=== PATIENT | male | born 1975 | race African-American/Black ===

== ENCOUNTER 2017-01-25 02:11 | Emergency (ER) | payer SELFPAY ==
[~2017-01-25] VITALS: Ht 185.4 cm; Wt 80.0 kg
[~2017-01-25 02:11] MED LIST: ECOT81TA2 PO; IBUP800T23 PO
[2017-01-25 02:16] VITALS: BP 124/94; PULSE 88; RESP 18; TEMP 98; O2SAT 99
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
[2017-01-25] MEDS ORDERED: MORPHINE SULFATE 4 MG/ML INJ IV PUSH ONE (03:15)
[2017-01-25] MEDS ORDERED: SODIUM CHLOR 0.9% 250 ML INJ 250 ML IV ONE (03:15)
[2017-01-25 03:29] VITALS: BP 146/98; PULSE 88; RESP 20; O2SAT 99
[2017-01-25] MEDS ORDERED: PROPOFOL 200 MG/20 ML AMP IV ONE (03:45)
[2017-01-25 03:58] VITALS: BP 146/98; PULSE 92; RESP 16; O2SAT 94
--- NOTE | 2017-01-25 04:46 | RADRPT ---
EXAM DATE/TIME: 01/25/2017 02:46 [facility] COMPARISON: No previous studies available for comparison. INDICATIONS : Left shoulder pain; fall today. MEDICAL HISTORY : None. SURGICAL HISTORY : None. ENCOUNTER: Initial ACUITY: 1 day PAIN SCORE: 10/10 LOCATION: Left shoulder FINDINGS: There is into dislocation of the humeral head without evidence of fracture. The acromioclavicular lalito nt is intact. Bony mineralization is normal. CONCLUSION: 1. Anterior shoulder dislocation Charanjit Blevins MD on January 25, 2017 at 4:44 Board Certified Radiologist. This report was verified electronically.
[2017-01-25 05:30] VITALS: O2SAT 100
[2017-01-25] MEDS ORDERED: IBUP800T23 PO (05:32)
[2017-01-25] MEDS ORDERED: ULTR50TA5 PO (05:32)
--- NOTE | 2017-01-25 06:20 | RADRPT ---
EXAM DATE/TIME: 01/25/2017 05:30 [facility] COMPARISON: SHOULDER LEFT LTD (2VWS), January 25, 2017, 2:46. INDICATIONS : Post reduction left shoulder. MEDICAL HISTORY : None. SURGICAL HISTORY : None. ENCOUNTER: Subsequent ACUITY: 1 day PAIN SCORE: 4/10 LOCATION: Left shoulder FINDINGS: There is uncomplicated reduction of the shoulder without evidence of fracture. The glenohumeral joint is intact. The acromioclavicular joint is intact. CONCLUSION: 1. Uncomplicated reduction Charanjit Blevins MD on January 25, 2017 at 6:19 Board Certified Radiologist. This report was verified electronically.
[2017-01-25 07:15] VITALS: BP 119/78; PULSE 84; RESP 15; O2SAT 98
== END 2017-01-25 09:26 | disposition home or self-care (01) ==
LOC: NEPC 02:11
DX: S43.005A Unspecified dislocation of left shoulder joint, initial encounter (principal); F12.10 Cannabis abuse, uncomplicated; F14.10 Cocaine abuse, uncomplicated; Y04.0XXA Assault by unarmed brawl or fight, initial encounter; Y93.9 Activity, unspecified; Y92.9 Unspecified place or not applicable; Y99.9 Unspecified external cause status
CPT/HCPCS: 23650; 73030; 96361; 96374; 99152; 99283; J2270; J7050

== ENCOUNTER 2017-03-23 19:09 | Emergency (ER) | payer SELFPAY ==
[~2017-03-23] VITALS: Ht 182.9 cm; Wt 70.0 kg
[~2017-03-23 19:09] MED LIST changes: +ULTR50TA5 PO
[2017-03-23 19:10] VITALS: BP 138/82; PULSE 90; RESP 16; TEMP 98.4; O2SAT 98
--- NOTE | 2017-03-23 20:07 | PD ---
Physical Exam Date Seen by Provider: Mar 23, 2017 Time Seen by Provider: 20:05 Narrative 41 yo male here for evaluation of Bite to the left knee. Happened three days ago. Painful 05/21. Has limp because of it. Unknown insect. No drainage. No allergies. has not taken anything for this. Vitals sign stable. Patient awaiting bed placement. Data Data Last Documented VS Vital Signs Date Time Temp Pulse Resp B/P Pulse Ox O2 Delivery O2 Flow Rate FiO2 03/23/17 19:10 98.4 90 16 138/82 98 Room Air [facility] Medical Record Reviewed: Yes Supervised Visit with JUAN DIEGO: No Manpreet Barrow Mar 23, 2017 20:07
[2017-03-23] MEDS ORDERED: CEPHALEXIN MONOHYDRATE 500 MG CAP PO ONE (22:45)
[2017-03-23] MEDS ORDERED: CEPH-460 PO (22:51)
[2017-03-23] MEDS ORDERED: IBUP800T23 PO (22:51)
--- NOTE | 2017-03-23 22:52 | PD ---
HPI Chief Complaint: Bite or Sting Time Seen by Provider: 22:30 Travel History International Travel<30 days: No Contact w/Intl Traveler<30days: No Traveled to known affect area: No History of Present Illness HPI Patient is a 41-year-old male presenting with possible insect bite to his left knee. Patient states it's been ongoing for 3 days, the pain is causing him to limp. He believes he could've been bit by a spider is uncertain. He denies any fever, chills, nausea, vomiting, headache, shortness of breath. He denies any swelling in his lower extremity. Patient reports his pain is a 7 out of 10 and states it's aching and sore. 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) Diabetes: No Diminished Hearing: No Endocrine: No Genitourinary: No Immune Disorder: No Musculoskeletal: No Neurologic: No Psychiatric: No Respiratory: No Radiation Therapy: No Sleep Apnea: No Thyroid Disease: No Past Surgical History Surgical History: No Previous Surgery Other Surgery: No Social History 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 SKIN: Focused skin assessment warm/dry. 2 cm x 3 cm area of fluctuance to the medial aspect of the left knee. No erythema noted, moderately tender to palpation. HEAD: Normocephalic. EYES: No scleral icterus. No injection or drainage. NECK: Supple, trachea midline. No JVD or lymphadenopathy. CARDIOVASCULAR: Regular rate and rhythm without murmurs, gallops, or rubs. RESPIRATORY: Breath sounds equal bilaterally. No accessory muscle use. GASTROINTESTINAL: Abdomen soft, non-tender, nondistended. MUSCULOSKELETAL: No cyanosis, or edema. BACK: Nontender without obvious deformity. No CVA tenderness. Data Data Last Documented VS Vital Signs Date Time Temp Pulse Resp B/P Pulse Ox O2 Delivery O2 Flow Rate FiO2 03/23/17 19:10 98.4 90 16 138/82 98 Room Air MDM Medical Decision Making Medical Screen Exam Complete: Yes Emergency Medical Condition: Yes Interpretation(s) Vital Signs Date Time Temp Pulse Resp B/P Pulse Ox O2 Delivery O2 Flow Rate FiO2 03/23/17 19:10 98.4 90 16 138/82 98 Room Air Differential Diagnosis Cellulitis versus abscess versus cyst versus other Narrative Course Patient is a 41-year-old male presenting with left knee pain secondary to possible insect bite. Physical examination appears consistent with abscess formation on the medial aspect of left knee. Please see procedure report for I& D. Ultrasound obtained, patient given first dose of Keflex in the emergency department. He was educated on wound care. He was advised to return in 48 hours for reevaluation and to have packing removed. He was advised to return immediately for any new or worsening symptoms. Patient verbalizes understanding of these instructions. Patient is stable for discharge. Procedures Procedure Narrative After the risks and benefits were discussed the following procedure was performed: INCISION AND DRAINAGE OF ABSCESS: The area was prepped and was sterilely draped. A subcutaneous wheal of 1% Xylocaine with a total number 2 mL was used to anesthetize the area. The area was properly anesthetized. A number 11 scalpel was used to make a 1-cm incision across the area of the abscess. Cultures were obtained. The abscess was drained an irrigated with normal saline. Quarter inch iodoform packing was placed in the wound. Sterile dressing applied. Patient advised to have packing removed in two days. Diagnosis Primary Impression: Abscess of knee, left Referrals: [facility] Primary Care Physician Patient Instructions: Abscess (GEN), Abscess Follow-up (ED), Abscess Incision and Drainage (ED), General Instructions Additional Instructions: Complete full course of antibiotics as prescribed Return to the emergency department in 48 hours for reevaluation and to have packing removed Return to emergency department immediately for any new or worsening symptoms He may take [id number] acetaminophen or ibuprofen as needed and as directed for pain Keep dressing clean and dry Med/Other Pt SpecificInfo: Prescription(s) given Scripts Ibuprofen 800 Mg [id number] Mg PO Q6HR PRN (PAIN) #40 TAB Ref 0 Prov:Sushma Cedeño 03/23/17 Cephalexin (Keflex)500 Mg [id number] Mg PO Q12H 10 Days Ref 0 Prov:Sushma Cedeño 03/23/17 Disposition: 01 DISCHARGE HOME Condition: Stable Sushma Cedeño Mar 23, 2017 22:52
== END 2017-03-24 00:05 | disposition home or self-care (01) ==
LOC: NEPD 19:09
DX: L02.416 Cutaneous abscess of left lower limb (principal); B95.62 Methicillin resistant Staphylococcus aureus infection as the cause of diseases classified elsewhere
CPT/HCPCS: 10061; 86403; 87070; 87077; 87186; 87205

== ENCOUNTER 2017-03-26 21:04 | Emergency (ER) | payer SELFPAY ==
[~2017-03-26] VITALS: Ht 182.9 cm; Wt 75.0 kg
[~2017-03-26 21:04] MED LIST changes: +CEPH-460 PO; -ECOT81TA2 PO; -ULTR50TA5 PO
[2017-03-26 21:08] VITALS: BP 131/79; PULSE 85; RESP 16; TEMP 97.9; O2SAT 96
[2017-03-26] MEDS ORDERED: BACT800T5 PO (22:04)
--- NOTE | 2017-03-26 22:08 | PD ---
HPI Chief Complaint: Wound/Suture/Staple Re-Check Time Seen by Provider: 22:05 Travel History International Travel<30 days: No Contact w/Intl Traveler<30days: No Traveled to known affect area: No History of Present Illness HPI 41-year-old black male presents to the department for recheck of the left knee abscess. He had an incision and drainage performed 2 days ago. Wound culture performed which is positive for MRSA. He was given a prescription for Keflex. He states the wound is draining. He does have some pain associated with it. He is concerned that there is a retained piece of gauze in the wound. No fever chills. Pain is moderate. Worse with movement. 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) Diabetes: No Diminished Hearing: No Endocrine: No Gastrointestinal Disorders: No Genitourinary: No Hypertension: No Immune Disorder: No Implanted Vascular Access Dvce: No Musculoskeletal: No Neurologic: No Psychiatric: No Respiratory: No Radiation Therapy: No Sleep Apnea: No Thyroid Disease: No Past Surgical History Other Surgery: No Social History 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) Tobacco Use: No Substance Use: Yes (MARIJUANA, cocaine) Allergies-Medications (Allergen,Severity, Reaction): Coded Allergies: *MDRO Multi-Drug Resistant Organism (Verified Adverse Reaction, Unknown, ) 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 SKIN: Patient has an open draining abscess to the distal medial aspect of the left upper leg just above the knee. Because of removed from the wound. There is no remaining iodoform. Wound is tender. Mild erythema. Slight discharge. HEAD: Atraumatic. Normocephalic. EYES: PERRL, EOMI, no discharge or injection. No scleral icterus. EARS: Clear NOSE: Nasal turbinates appear normal. THROAT: Mucosa pink and moist. Airway patent. NECK: Trachea midline. supple, moves head freely. LUNGS: Clear to auscultation. CV: Regular in rhythm. ABDOMEN: Soft nontender. EXT: No clubbing cyanosis or edema. Data Data Last Documented VS Vital Signs Date Time Temp Pulse Resp B/P Pulse Ox O2 Delivery O2 Flow Rate FiO2 03/26/17 21:08 97.9 85 16 131/79 96 Room Air MDM Medical Decision Making Medical Screen Exam Complete: Yes Emergency Medical Condition: Yes Medical Record Reviewed: Yes Differential Diagnosis MDM: High Differential diagnoses: Abscess, folliculitis, cellulitis, lymphangitis, abrasion, contact dermatitis Narrative Course The packing a been removed from the wound. There is no remaining packing. The patient is convinced that there still is packing. I explained to him that there is no remaining packing. The wound is cleansed and dressed by the nursing staff. Wound culture is positive for MRSA. Patient was given Keflex. Resistant Keflex. Sensitive to Bactrim. Patient is given Bactrim DS and one Lortab 5 a grams by mouth. This is left knee abscess recheck Diagnosis Primary Impression: left knee abscess recheck Patient Instructions: Narcotic given in the ED, General Instructions Additional Instructions: Rest. Elevation. keep clean and dry. Warm compresses Daily wound care with soap, water and Neosporin. Three Advil every 6 hours. Bactrim DS. Follow-up with a primary care doctor in one week. Return to the ER for any problems. Med/Other Pt SpecificInfo: Prescription(s) given Scripts Sulfamethoxazole-Trimethoprim (Bactrim DS)800-160 Mg Tab1 Tab PO BID #20 TAB Prov:Melina Mcginnis DO 03/26/17 Disposition: 01 DISCHARGE HOME Condition: Stable Derek Lutz Mar 26, 2017 22:08
[2017-03-26] MEDS ORDERED: SULFAMETHOXAZOLE-TRIMETHOPRIM DS 800-160 MG TAB PO ONE (22:15)
[2017-03-26] MEDS ORDERED: ACETAMINOPHEN/HYDROcodone 325 MG/5 MG TAB PO ONE (22:15)
== END 2017-03-26 22:33 | disposition home or self-care (01) ==
LOC: NEPK 21:04
DX: L02.416 Cutaneous abscess of left lower limb (principal)
CPT/HCPCS: 99283

== ENCOUNTER 2017-10-12 00:25 | Observation (INO) | payer SELFPAY ==
[~2017-10-12] VITALS: Ht 182.9 cm; Wt 80.0 kg
[2017-10-12] VITALS (8 sets, daily range): BP systolic 107–159; BP diastolic 61–97; PULSE 82–98; RESP 14–18; TEMP 97.7–99.9; O2SAT 96–100
[~2017-10-12 00:25] MED LIST changes: +BACT800T5 PO; +IBUP1TAB7 PO; -IBUP800T23 PO
[2017-10-12] MEDS ORDERED: IOHEXOL 350 MG/ML 10 ML VIAL (for RAD DIAG) IVCONTRAST ONE (00:26)
[2017-10-12] MEDS ORDERED: SODIUM CHLOR 0.9% 1000 ML INJ 1,000 ML IV SCH (01:18)
--- NOTE | 2017-10-12 01:22 | PD ---
HPI Chief Complaint: Abdominal Pain Time Seen by Provider: 01:01 Travel History International Travel<30 days: No Contact w/Intl Traveler<30days: No Traveled to known affect area: No History of Present Illness HPI 41-year-old male complains of abdominal pain. Patient states that the pain started 3 days ago. Patient states the pain is cramping pain and sharp pain diffuse over the abdomen. Patient states that the pain radiates to the back. Patient denies any fever chills. Patient denies any nausea vomiting. Patient states that he has intermittent diarrhea. Patient denies any dysuria or frequency. Patient denies any history of GI problem in the past. Patient denies any routine medication. On a scale of 1-10 the pain is an 8. 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) Diabetes: No Diminished Hearing: No Endocrine: No Gastrointestinal Disorders: No Genitourinary: No Hypertension: No Immune Disorder: No Implanted Vascular Access Dvce: No Musculoskeletal: No Neurologic: No Psychiatric: No Respiratory: No Radiation Therapy: No Sleep Apnea: No Thyroid Disease: No Tetanus Vaccination: < 5 Years Influenza Vaccination: No Past Surgical History Other Surgery: No Social History Alcohol Use: Yes (daily) Tobacco Use: No Substance Use: Yes (MARIJUANA, cocaine) Allergies-Medications (Allergen,Severity, Reaction): Coded Allergies: No Known Allergies (Unverified , 10/12/17) Reported Meds & Prescriptions Reported Meds & Active Scripts Active Bactrim DS (Sulfamethoxazole-Trimethoprim) 800-160 Mg Tab 1 Tab PO BID Ibuprofen 800 Mg Tab 800 Mg PO Q6HR PRN Keflex (Cephalexin) 500 Mg Cap 500 Mg PO Q12H 10 Days Review of Systems General / Constitutional: No: Fever Eyes: No: Visual changes HENT: No: Headaches Cardiovascular: No: Chest Pain or Discomfort Respiratory: No: Shortness of Breath Gastrointestinal: Positive: Diarrhea, Abdominal Pain Genitourinary: No: Dysuria Musculoskeletal: No: Pain Skin: No Rash Neurologic: No: Weakness Psychiatric: No: Depression Endocrine: No: Polydipsia Hematologic/Lymphatic: No: Easy Bruising Physical Exam Narrative GENERAL: Well-nourished, well-developed patient. SKIN: Focused skin assessment warm/dry. HEAD: Normocephalic. EYES: No scleral icterus. No injection or drainage. NECK: Supple, trachea midline. No JVD or lymphadenopathy. CARDIOVASCULAR: Regular rate and rhythm without murmurs, gallops, or rubs. RESPIRATORY: Breath sounds equal bilaterally. No accessory muscle use. GASTROINTESTINAL: Abdomen soft, nondistended. Patient has moderate diffuse tenderness over the abdomen. No rebound tenderness. No mass. MUSCULOSKELETAL: No cyanosis, or edema. BACK: Nontender without obvious deformity. No CVA tenderness. Neurologic exam normal. Data Data Last Documented VS Vital Signs Date Time Temp Pulse Resp B/P (MAP) Pulse Ox O2 Delivery O2 Flow Rate FiO2 10/12/17 00:28 98.1 92 16 139/92 (108) 98 Room Air Orders Orders Complete Blood Count With Diff (10/12/17 01:18) Comprehensive Metabolic Panel (10/12/17 01:18) Lipase (10/12/17 01:18) Prothrombin Time / Inr (Pt) (10/12/17 01:18) Act Partial Throm Time (Ptt) (10/12/17 01:18) Urinalysis - C+S If Indicated (10/12/17 01:18) Ct Abd/Pel W Iv Contrast(Rout) (10/12/17 01:18) Iv Access Insert/Monitor (10/12/17 01:18) Ecg Monitoring (10/12/17 01:18) Oximetry (10/12/17 01:18) Morphine Inj (Morphine Inj) (10/12/17 01:30) Ondansetron Inj (Zofran Inj) (10/12/17 01:30) Sodium Chlor 0.9% 1000 Ml Inj (Ns 1000 M (10/12/17 01:18) Sodium Chloride 0.9% Flush (Ns Flush) (10/12/17 01:30) Famotidine Inj (Pepcid Inj) (10/12/17 01:30) Morphine Inj (Morphine Inj) (10/12/17 01:30) Iohexol 350 Inj (Omnipaque 350 Inj) (10/12/17 00:26) Metoclopramide Inj (Reglan Inj) (10/12/17 05:00) Diphenhydramine Inj (Benadryl Inj) (10/12/17 05:00) Labs Laboratory Tests Test 10/12/17 01:35 White Blood Count 10.3 TH/MM3 Red Blood Count 5.72 MIL/MM3 Hemoglobin 16.7 GM/DL Hematocrit 48.2 % Mean Corpuscular Volume 84.2 FL Mean Corpuscular Hemoglobin 29.2 PG Mean Corpuscular Hemoglobin Concent 34.7 % Red Cell Distribution Width 13.8 % Platelet Count 306 TH/MM3 Mean Platelet Volume 8.0 FL Neutrophils (%) (Auto) 79.9 % Lymphocytes (%) (Auto) 10.2 % Monocytes (%) (Auto) 9.0 % Eosinophils (%) (Auto) 0.6 % Basophils (%) (Auto) 0.3 % Neutrophils # (Auto) 8.2 TH/MM3 Lymphocytes # (Auto) 1.1 TH/MM3 Monocytes # (Auto) 0.9 TH/MM3 Eosinophils # (Auto) 0.1 TH/MM3 Basophils # (Auto) 0.0 TH/MM3 CBC Comment DIFF FINAL Differential Comment Prothrombin Time 10.5 SEC Prothromb Time International Ratio 1.0 RATIO Activated Partial Thromboplast Time 26.5 SEC Blood Urea Nitrogen 12 MG/DL Creatinine 0.91 MG/DL Random Glucose 111 MG/DL Total Protein 7.7 GM/DL Albumin 3.7 GM/DL Calcium Level 9.2 MG/DL Alkaline Phosphatase 63 U/L Aspartate Amino Transf (AST/SGOT) 19 U/L Alanine Aminotransferase (ALT/SGPT) 21 U/L Total Bilirubin 0.5 MG/DL Sodium Level 138 MEQ/L Potassium Level 3.9 MEQ/L Chloride Level 105 MEQ/L Carbon Dioxide Level 26.1 MEQ/L Anion Gap 7 MEQ/L Estimat Glomerular Filtration Rate 111 ML/MIN Lipase 79 U/L [facility] Medical Decision Making Medical Screen Exam Complete: Yes Emergency Medical Condition: Yes Interpretation(s) Last Impressions Abdomen/Pelvis CT 10/12/17 0118 Signed Impressions: Service Date/Time: Thursday, October 12, 2017 03:07 - CONCLUSION: 1. Acute inflammatory process involving the distal small bowel. Consider Crohn's disease. Sergei Neri Jr., MD 4:53 AM. CBC within normal limit. CMP within normal limit. Differential Diagnosis Differential diagnosis including appendicitis, gastritis, PUD, pancreatitis, cholecystitis, colitis, UTI, pyelonephritis, nephrolithiasis. Narrative Course 41-year-old male with abdominal pain and diarrhea. Normal saline solution 1 25 cc an hour. Pepcid 20 mg IV. Morphine 2 mg IV. Zofran 4 mg IV. Reglan 10 mg IV. Benadryl 50 mg IV. Diagnosis Primary Impression: Enteritis Additional Impression: Vomiting Qualified Codes: R11.2 - Nausea with vomiting, unspecified Admitting Information Admitting Physician Requests: Admit Min Kim MD Oct 12, 2017 01:22
[2017-10-12] MEDS ORDERED: SODIUM CHLORIDE 0.9% FLUSH 10 ML FLUSH IV FLUSH PRN ×2 (01:30→05:30)
[2017-10-12] MEDS ORDERED: FAMOTIDINE 20 MG/2 ML VIAL IV PUSH ONE (01:30)
[2017-10-12] MEDS ORDERED: MORPHINE SULFATE 4 MG/ML INJ IV PUSH ONE (01:30)
[2017-10-12] MEDS ORDERED: MORPHINE SULFATE 2 MG/ML INJ IV PUSH ONE (01:30)
[2017-10-12] MEDS ORDERED: ONDANSETRON HCL 4 MG/2 ML VIAL IVP ONE (01:30)
[2017-10-12 02:03] LABS: AUTOMATED NEUTROPHIL # 8.2 TH/MM3 (1.8-7.7); BASOPHIL % 0.3 % (0.0-2.0); EOSINOPHIL # 0.1 TH/MM3 (0-0.4); EOSINOPHIL % 0.6 % (0.0-4.0); HEMATOCRIT 48.2 % (39.0-51.0); HEMOGLOBIN 16.7 GM/DL (13.0-17.0); LYMPH % 10.2 % (9.0-44.0); LYMPHOCYTE # 1.1 TH/MM3 (1.0-4.8); MEAN CELL VOLUME 84.2 FL (80.0-100.0); MEAN CORPUSCULAR HEMOGLOBIN 29.2 PG (27.0-34.0); MEAN CORPUSCULAR HGB CONC 34.7 % (32.0-36.0); MONOCYTE # 0.9 TH/MM3 (0-0.9); NEUT % 79.9 % (16.0-70.0); PLATELET COUNT 306 TH/MM3 (150-450); RED BLOOD COUNT 5.72 MIL/MM3 (4.50-5.90); RED CELL DISTRIBUTION WIDTH 13.8 % (11.6-17.2); WHITE BLOOD COUNT 10.3 TH/MM3 (4.0-11.0)
[2017-10-12 02:16] LABS: ALBUMIN 3.7 GM/DL (3.4-5.0); ALT (GPT) 21 U/L (12-78); AST (GOT) 19 U/L (15-37); BICARBONATE 26.1 MEQ/L (21.0-32.0); BLOOD UREA NITROGEN 12 MG/DL (7-18); CALCIUM 9.2 MG/DL (8.5-10.1); CHLORIDE 105 MEQ/L (98-107); CREATININE 0.91 MG/DL (0.60-1.30); GLOMERULAR FILTRATION RATE 111 ML/MIN (>89); GLUCOSE,RANDOM 111 MG/DL (74-106); LIPASE 79 U/L (73-393); PROTHROMBIN TIME - PATIENT 10.5 SEC (9.8-11.6); SODIUM (NA) 138 MEQ/L (136-145)
[2017-10-12 02:18] LABS: ALKALINE PHOSPHATASE 63 U/L (45-117); TOTAL BILIRUBIN ADULT 0.5 MG/DL (0.2-1.0); TOTAL PROTEIN 7.7 GM/DL (6.4-8.2)
--- NOTE | 2017-10-12 03:44 | RADRPT ---
EXAM DATE/TIME: 10/12/2017 03:07 [place] COMPARISON: No previous studies available for comparison. INDICATIONS : Abdomen pain past 3 days. IV CONTRAST: 95 cc Omnipaque 350 (iohexol) IV ORAL CONTRAST: No oral contrast ingested. RADIATION DOSE: 5.95 CTDIvol (mGy) MEDICAL HISTORY : Cardiovascular disease. SURGICAL HISTORY : None. ENCOUNTER: Initial ACUITY: 3 days PAIN SCALE: 10/10 LOCATION: Bilateral abdomen TECHNIQUE: Volumetric scanning of the abdomen and pelvis was performed. Using automated exposure control and ad justment of the mA and/or kV according to patient size, radiation dose was kept as low as reasonably achievable to obtain optimal diagnostic quality images. DICOM format image data is available electro nically for review and comparison. FINDINGS: LOWER LUNGS: The visualized lower lungs are clear. LIVER: Homogeneous density without lesion. There is no dilation of the biliary tree. No calcified gallston es. SPLEEN: Normal size without lesion. PANCREAS: Within normal limits. KIDNEYS: Normal in size and shape. There is no mass, stone or hydronephrosis. ADRENAL GLANDS: Within normal limits. VASCULAR: There is no aortic aneurysm. BOWEL/MESENTERY: Multiple loops of abnormal distal small bowel. These loops of bowel show significant circumferential wall thickening. There is stranding of the adjacent mesentery. The more proximal small bowel is saw l. There is involvement of the terminal ileum. Colon is unremarkable. No free air. Small volume free fluid deep within the pelvis. ABDOMINAL WALL: Within normal limits. RETROPERITONEUM: There is no lymphadenopathy. BLADDER: No wall thickening or mass. REPRODUCTIVE: Within normal limits. INGUINAL: There is no lymphadenopathy or hernia. MUSCULOSKELETAL: Within normal limits for patient age. CONCLUSION: 1. Acute inflammatory process involving the distal small bowel. Consider Crohn's disease. Sergei Neri Jr., MD on October 12, 2017 at 3:39 Board Certified Radiologist. This report was verified electronically.
[2017-10-12] MEDS ORDERED: diphenhydrAMINE HCL 50 MG/ML VIAL IV PUSH ONE (05:00)
[2017-10-12] MEDS ORDERED: METOCLOPRAMIDE HCL 10 MG/2 ML VIAL IV PUSH ONE (05:00)
[2017-10-12] MEDS ORDERED: methylPREDNISolone SOD SUCC 125 MG/2 ML VIAL IV PUSH ONE (05:30)
[2017-10-12] MEDS ORDERED: ACETAMINOPHEN/HYDROcodone 325 MG/5 MG TAB PO PRN (05:30)
[2017-10-12] MEDS ORDERED: BISACODYL 10 MG SUPP RECTAL PRN (05:30)
[2017-10-12] MEDS ORDERED: LACTULOSE SYRUP 20 GM/30 ML CUP PO PRN (05:30)
[2017-10-12] MEDS ORDERED: SENNOSIDES 8.6 MG TAB PO PRN (05:30)
[2017-10-12] MEDS ORDERED: TRIMETHOBENZAMIDE INJ 200 MG/2 ML VIAL IM PRN (05:30)
[2017-10-12] MEDS ORDERED: ONDANSETRON HCL 4 MG/2 ML VIAL IVP PRN (05:30)
[2017-10-12] MEDS ORDERED: ACETAMINOPHEN 325 MG TAB PO PRN (05:30)
[2017-10-12] MEDS ORDERED: MAGNESIUM HYDROXIDE SUSP 30 ML CUP PO PRN (05:30)
[2017-10-12] MEDS: metroNIDAZOLE 500 MG INJ 100 ML IV SCH ×4 (06:05→21:12)
[2017-10-12] MEDS: CIPROFLOXACIN 400 MG PREMIX 200 ML IV SCH ×2 (06:06→17:00)
[2017-10-12] MEDS: DOCUSATE SODIUM 50 MG/SENNA 8.6 MG TAB PO SCH ×2 (07:54→21:00)
[2017-10-12] MEDS: MORPHINE SULFATE 2 MG/ML INJ IV PUSH PRN ×2 (07:55→23:08)
[2017-10-12] MEDS: SODIUM CHLOR 0.9% 1000 ML INJ 1,000 ML IV SCH ×2 (07:55→17:01)
[2017-10-12] MEDS: SODIUM CHLORIDE 0.9% FLUSH 10 ML FLUSH IV FLUSH SCH ×2 (07:55→21:00)
[2017-10-12] MEDS ORDERED: LORazepam 2 MG TAB PO PRN (08:00)
[2017-10-12] MEDS ORDERED: LORazepam 2 MG/ML VIAL IV PUSH PRN ×4 (08:00)
[2017-10-12] MEDS ORDERED: FLUMAZENIL 0.5 MG/5 ML VIAL IV PUSH PRN (08:00)
[2017-10-12] MEDS ORDERED: LORazepam 1 MG TAB PO PRN (08:00)
[2017-10-12] MEDS: MULTIVITAMIN TAB PO SCH (09:00)
--- NOTE | 2017-10-12 09:11 | PD.CONS ---
HPI History of Present Illness This is a 41 year old AA male with a past medical history of WPW, Friedman's palsy, alcohol abuse presents with diffused severe abd pain with radiation to the back for the past 3 days. This is associated with loose watery stools every 3 minutes. No melena or hematochezia. States he wasn't able to eat or sleep because of the pain. States he had similar episode 2 weeks ago but lasted for 2 days then subsided. Denies sick contact or travel or suspicious foods. CT done showed acute inflammatory process involving the distal small bowel, possible Crohn's disease. CBC, CMP wnl. (Vida Nava) PFSH Past Medical History WPW Friedman's palsy Alcohol abuse Past Surgical History None (Vida Nava) Coded Allergies: No Known Allergies (Unverified , 10/12/17) Medications Current Medications Medications (Trade) Dose Ordered Sig/Harrison Route Start Time Stop Time Status Last Admin Sodium Chloride 1,000 ml @ 125 mls/hr Q8H IV 10/12/17 01:18 10/12/17 09:17 10/12/17 01:40 (Tigan Inj) 200 mg Q6H PRN IM 10/12/17 05:30 Ciprofloxacin/ Dextrose 200 ml @ 200 mls/hr Q12H IV 10/12/17 06:00 10/12/17 06:06 Metronidazole 100 ml @ 100 mls/hr Q8H IV 10/12/17 06:00 10/12/17 07:55 Sodium Chloride 1,000 ml @ 100 mls/hr Q10H IV 10/12/17 05:17 10/12/17 07:55 (NS Flush) 2 ml UNSCH PRN IV FLUSH 10/12/17 05:30 10/12/17 06:06 (NS Flush) 2 ml BID IV FLUSH 10/12/17 09:00 10/12/17 07:55 (Zofran Inj) 4 mg Q6H PRN IVP 10/12/17 05:30 (Tylenol) 650 mg Q6H PRN PO 10/12/17 05:30 ([place] 5-325 Mg) 1 tab Q4H PRN PO 10/12/17 05:30 (Morphine Inj) 2 mg Q3H PRN IV PUSH 10/12/17 05:30 10/12/17 07:55 (Ernestine-Colace) 1 tab BID PO 10/12/17 09:00 10/12/17 07:54 (Milk Of Magnesia Liq) 30 ml Q12H PRN PO 10/12/17 05:30 (Senokot) 17.2 mg Q12H PRN PO 10/12/17 05:30 (Dulcolax Supp) 10 mg DAILY PRN RECTAL 10/12/17 05:30 (Lactulose Liq) 30 ml DAILY PRN PO 10/12/17 05:30 (Romazicon Inj) 0.2 mg Q1M PRN IV PUSH 10/12/17 08:00 (Ativan) 1 mg Q4H PRN PO 10/12/17 08:00 (Ativan Inj) 1 mg Q4H PRN IV PUSH 10/12/17 08:00 (Ativan) 2 mg Q2H PRN PO 10/12/17 08:00 (Ativan Inj) 2 mg Q2H PRN IV PUSH 10/12/17 08:00 (Ativan Inj) 2 mg Q1H PRN IV PUSH 10/12/17 08:00 (Ativan Inj) 2 mg Q15M PRN IV PUSH 10/12/17 08:00 (Theragran) 1 tab DAILY PO 10/12/17 09:00 (Vitamin B1) 100 mg DAILY PO 10/12/17 09:00 (Folate) 1 mg DAILY PO 10/12/17 09:00 Family History No family hx of coon cancer or IBD Social History Alcohol daily No smoking No illicit drug use, states used to do marijuana but not any more (Elijah,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) Review of Systems Constitutional: COMPLAINS OF: Change in appetite Endocrine: DENIES: Polyuria Eyes: DENIES: Double Vision Ears, nose, mouth, throat: DENIES: Hoarseness Respiratory: DENIES: Shortness of breath Cardiovascular: DENIES: Lower Extremity Edema Gastrointestinal: COMPLAINS OF: Abdominal pain, Diarrhea, Anorexia, DENIES: Black stools, Bloody stools, Constipation, Nausea, Vomiting, Difficulty Swallowing, Odynophagia, Swelling of Abdomen, Heartburn, Hematemesis Genitourinary: DENIES: Hematuria Musculoskeletal: DENIES: Back pain Integumentary: DENIES: Jaundice Hematologic/lymphatic: DENIES: Bruising Immunologic/allergic: DENIES: Eczema Neurologic: DENIES: Abnormal gait Psychiatric: DENIES: Anxiety (Vida Nava DHARA) GI Exam Vitals I&O Vital Signs Date Time Temp Pulse Resp B/P (MAP) Pulse Ox O2 Delivery O2 Flow Rate FiO2 10/12/17 07:35 99.5 82 16 115/71 (86) 97 10/12/17 06:48 99.9 95 18 129/75 (93) 96 10/12/17 06:11 10/12/17 06:10 98 14 140/81 (100) 98 Room Air 10/12/17 00:28 98.1 92 16 139/92 (108) 98 Room Air I/O 10/11/17 10/11/17 10/11/17 10/12/17 10/12/17 10/12/17 07:00 15:00 23:00 07:00 15:00 23:00 Intake Total 1000 ml Balance 1000 ml Intake IV Total 1000 ml Imaging Last Impressions Abdomen/Pelvis CT 10/12/17 0118 Signed Impressions: Service Date/Time: Thursday, October 12, 2017 03:07 - CONCLUSION: 1. Acute inflammatory process involving the distal small bowel. Consider Crohn's disease. Sergei Neri Jr., MD Laboratory Test 10/12/17 01:35 White Blood Count 10.3 TH/MM3 Red Blood Count 5.72 MIL/MM3 Hemoglobin 16.7 GM/DL Hematocrit 48.2 % Mean Corpuscular Volume 84.2 FL Mean Corpuscular Hemoglobin 29.2 PG Mean Corpuscular Hemoglobin Concent 34.7 % Red Cell Distribution Width 13.8 % Platelet Count 306 TH/MM3 Mean Platelet Volume 8.0 FL Neutrophils (%) (Auto) 79.9 % Lymphocytes (%) (Auto) 10.2 % Monocytes (%) (Auto) 9.0 % Eosinophils (%) (Auto) 0.6 % Basophils (%) (Auto) 0.3 % Neutrophils # (Auto) 8.2 TH/MM3 Lymphocytes # (Auto) 1.1 TH/MM3 Monocytes # (Auto) 0.9 TH/MM3 Eosinophils # (Auto) 0.1 TH/MM3 Basophils # (Auto) 0.0 TH/MM3 CBC Comment DIFF FINAL Differential Comment Prothrombin Time 10.5 SEC Prothromb Time International Ratio 1.0 RATIO Activated Partial Thromboplast Time 26.5 SEC Blood Urea Nitrogen 12 MG/DL Creatinine 0.91 MG/DL Random Glucose 111 MG/DL Total Protein 7.7 GM/DL Albumin 3.7 GM/DL Calcium Level 9.2 MG/DL Alkaline Phosphatase 63 U/L Aspartate Amino Transf (AST/SGOT) 19 U/L Alanine Aminotransferase (ALT/SGPT) 21 U/L Total Bilirubin 0.5 MG/DL Sodium Level 138 MEQ/L Potassium Level 3.9 MEQ/L Chloride Level 105 MEQ/L Carbon Dioxide Level 26.1 MEQ/L Anion Gap 7 MEQ/L Estimat Glomerular Filtration Rate 111 ML/MIN Lipase 79 U/L Physical Examination HEENT: normocephalic; atraumatic; no jaundice. NECK: Neck is supple, no JVD, no lymphadenopathy. CHEST: Chest is clear to auscultation and percussion. CARDIAC: Regular rate and rhythm with no murmur gallop or rubs. ABDOMEN: Soft, nondistended, diffused abd pain ; no hepatosplenomegaly; bowel sounds are present in all four quadrants. EXTREMITIES: No clubbing, cyanosis, or edema. SKIN: Normal; no rash; no jaundice. MARKETING OPERATIONS CONSULTANT: No focal deficits; alert and oriented times three. (Vida Nava) Assessment and Plan Plan - Diffused severe abd pain with radiation to the back for the past 3 days. This is associated with loose watery stools every [address] done showed acute inflammatory process involving the distal small bowel, possible Crohn's disease. CBC, CMP wnl. Started on Cipro and Flagyl. - Hx of WPW, per attending Plan: - Clears - EGD/colonoscopy in the am - Golytely today - NPO mn - Consents - Cont. cipro and Flagyl - Stool studies - Patient seen and examined by Dr. Snowden and myself and this note is written on his behalf. (Vida Nava) Physician Comments Seen and examined, plan as above, will schedule EGD and Colonoscopy in AM. (Lawrence Snowden MD) Vida Nava Oct 12, 2017 09:11 Lawrence Snowden MD Oct 12, 2017 20:36
--- NOTE | 2017-10-12 10:17 | HHI.HP ---
[facility] Service [facility] Primary Care Physician No Primary Care Physician Admission Diagnosis enteritis. Recurrent vomiting Diagnoses: Travel History International Travel<30 Days: No Contact w/Intl Traveler <30 Da: No Traveled to Known Affected Are: No History of Present Illness Mr. Garcia is a 41 -year-old male. He is admitted secondary to symptoms of hyperemesis. The symptoms have been occurring for the past 3 days along with abdominal pain. He has no recurrent pattern of this. However imaging shows evidence of enteritis suggestive of possible Crohn's disease. EGD and colonoscopy are planned for tomorrow. The patient says that he's feeling slightly better today but does not have full resolution of his symptoms yet. 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 No complaints of fever. Review of Systems Constitutional: COMPLAINS OF: Change in appetite, DENIES: Fatigue, Fever, Night Sweats Eyes: DENIES: Blurred vision, Diplopia, Eye inflammation Ears, nose, mouth, throat: DENIES: Tinnitus, Hearing loss, Vertigo, Nasal discharge Respiratory: DENIES: Cough, Wheezing, Shortness of breath Cardiovascular: DENIES: Chest pain, Palpitations, Syncope, Dyspnea on Exertion Gastrointestinal: COMPLAINS OF: Abdominal pain, Nausea, Vomiting, DENIES: Black stools, Bloody stools Musculoskeletal: DENIES: Joint pain, Muscle aches, Stiffness Integumentary: DENIES: Abnormal pigmentation, Nail changes, Pruritus, Rash Hematologic/lymphatic: DENIES: Bruising, Lymphadenopathy Immunologic/allergic: DENIES: Eczema, Urticaria Neurologic: DENIES: Abnormal gait, Headache, Paresthesias Psychiatric: DENIES: Anxiety, Confusion, Hallucinations Past Family Social History Past Medical History WPW Friedman's palsy Past Surgical History None Reported Medications Reported Meds & Active Scripts Active Bactrim DS (Sulfamethoxazole-Trimethoprim) 800-160 Mg Tab 1 Tab PO BID Ibuprofen 800 Mg Tab 800 Mg PO Q6HR PRN Keflex (Cephalexin) 500 Mg Cap 500 Mg PO Q12H 10 Days Allergies: Coded Allergies: No Known Allergies (Unverified , 10/12/17) Active Ordered Medications Administered Medications Medications (Trade) Dose Ordered Sig/Harrison Route PRN Reason Start Time Stop Time Status Last Admin Dose Admin Ciprofloxacin/ Dextrose 200 ml @ 200 mls/hr Q12H IV 10/12/17 06:00 10/12/17 06:06 Metronidazole 100 ml @ 100 mls/hr Q8H IV 10/12/17 06:00 10/12/17 07:55 Sodium Chloride 1,000 ml @ 100 mls/hr Q10H IV 10/12/17 05:17 10/12/17 07:55 Sodium Chloride (NS Flush) 2 ml UNSCH PRN IV FLUSH FLUSH AFTER USING IV ACCESS 10/12/17 05:30 10/12/17 06:06 Sodium Chloride (NS Flush) 2 ml BID IV FLUSH 10/12/17 09:00 10/12/17 07:55 Morphine Sulfate (Morphine Inj) 2 mg Q3H PRN IV PUSH Pain 6-10 10/12/17 05:30 10/12/17 07:55 Senna/Docusate Sodium (Ernestine-Colace) 1 tab BID PO 10/12/17 09:00 10/12/17 07:54 Family History No family hx of coon cancer or IBD Social History Alcohol use/abuse Cocaine abuse in the past, not currently Marijuana use in the past, not currently No smoking Physical Exam Vital Signs Vital Signs Date Time Temp Pulse Resp B/P (MAP) Pulse Ox O2 Delivery O2 Flow Rate FiO2 10/12/17 07:35 99.5 82 16 115/71 (86) 97 10/12/17 06:48 99.9 95 18 129/75 (93) 96 10/12/17 06:11 10/12/17 06:10 98 14 140/81 (100) 98 Room Air 10/12/17 00:28 98.1 92 16 139/92 (108) 98 Room Air Physical Exam GENERAL: NAD, A&Ox3 HEAD: Normocephalic. NECK: Supple, trachea midline. No lymphadenopathy. EYES: No scleral icterus. No injection or drainage. CARDIOVASCULAR: Regular rate and rhythm without murmurs, gallops, or rubs. RESPIRATORY: Breath sounds equal bilaterally. No accessory muscle use. GASTROINTESTINAL: Abdomen soft, non-tender, nondistended. MUSCULOSKELETAL: No cyanosis, or edema. SKIN: Warm and dry. NEURO: No focal neurological deficitis. Laboratory Laboratory Tests Test 10/12/17 01:35 White Blood Count 10.3 Red Blood Count 5.72 Hemoglobin 16.7 Hematocrit 48.2 Mean Corpuscular Volume 84.2 Mean Corpuscular Hemoglobin 29.2 Mean Corpuscular Hemoglobin Concent 34.7 Red Cell Distribution Width 13.8 Platelet Count 306 Mean Platelet Volume 8.0 Neutrophils (%) (Auto) 79.9 Lymphocytes (%) (Auto) 10.2 Monocytes (%) (Auto) 9.0 Eosinophils (%) (Auto) 0.6 Basophils (%) (Auto) 0.3 Neutrophils # (Auto) 8.2 Lymphocytes # (Auto) 1.1 Monocytes # (Auto) 0.9 Eosinophils # (Auto) 0.1 Basophils # (Auto) 0.0 CBC Comment DIFF FINAL Differential Comment Prothrombin Time 10.5 Prothromb Time International Ratio 1.0 Activated Partial Thromboplast Time 26.5 Blood Urea Nitrogen 12 Creatinine 0.91 Random Glucose 111 Total Protein 7.7 Albumin 3.7 Calcium Level 9.2 Alkaline Phosphatase 63 Aspartate Amino Transf (AST/SGOT) 19 Alanine Aminotransferase (ALT/SGPT) 21 Total Bilirubin 0.5 Sodium Level 138 Potassium Level 3.9 Chloride Level 105 Carbon Dioxide Level 26.1 Anion Gap 7 Estimat Glomerular Filtration Rate 111 Lipase 79 Result Diagram: 10/12/1713410/12/17134 Caprini VTE Risk Assessment Caprini VTE Risk Assessment: No/Low Risk (score <= 1) Caprini Risk Assessment Model Point Value = 1 Point Value = 2 Point Value = 3 Point Value = 5 Age 41-60 Minor surgery BMI > 25 kg/m2 Swollen legs Varicose veins or History of unexplained or recurrent spontaneous Oral contraceptives or hormone replacement Sepsis (< 1 month) Serious lung disease, including pneumonia (< 1 month) Abnormal pulmonary function Acute myocardial infarction Congestive heart failure (< 1 month) History of inflammatory bowel disease Medical patient at bed rest Age 61-74 Arthroscopic surgery Major open surgery (> 45 min) Laparoscopic surgery (> 45 min) Malignancy Confined to bed (> 72 hours) Immobilizing plaster cast Central venous access Age >= 75 History of VTE Family history of VTE Factor V Leiden Prothrombin [id number] Lupus anticoagulant Anticardiolipin antibodies Elevated serum homocysteine Heparin-induced thrombocytopenia Other congenital or acquired thrombophilia Stroke (< 1 month) Elective arthroplasty Hip, pelvis, or leg fracture Acute spinal cord injury (< 1 month) Prophylaxis Regimen Total Risk Factor Score Risk Level Prophylaxis Regimen 0-1 Low Early ambulation 2 Moderate Order ONE of the following: *Sequential Compression Device (SCD) *Heparin 5000 units SQ BID 3-4 Higher Order ONE of the following medications: *Heparin 5000 units SQ TID *Enoxaparin/Lovenox 40 mg SQ daily (WT < 150 kg, CrCl > 30 mL/min) *Enoxaparin/Lovenox 30 mg SQ daily (WT < 150 kg, CrCl > 10-29 mL/min) *Enoxaparin/Lovenox 30 mg SQ BID (WT < 150 kg, CrCl > 30 mL/min) AND/OR *Sequential Compression Device (SCD) 5 or more Highest Order ONE of the following medications: *Heparin 5000 units SQ TID (Preferred with Epidurals) *Enoxaparin/Lovenox 40 mg SQ daily (WT < 150 kg, CrCl > 30 mL/min) *Enoxaparin/Lovenox 30 mg SQ daily (WT < 150 kg, CrCl > 10-29 mL/min) *Enoxaparin/Lovenox 30 mg SQ BID (WT < 150 kg, CrCl > 30 mL/min) AND *Sequential Compression Device (SCD) Assessment and Plan Problem List: (1) Enteritis ICD Code: K52.9 - Noninfective gastroenteritis and colitis, unspecified Status: Acute (2) Vomiting ICD Code: R11.10 - Vomiting, unspecified Status: Acute Assessment and Plan 41-year-old male admitted secondary to hyperemesis with enteritis Hyperemesis Enteritis Possible Crohn's disease GI following Plan for EGD and colonoscopy tomorrow morning Clear liquids for now Nothing by mouth at midnight IV hydration WPW Follow clinically No need for changes in treatment Has been stable at baseline DVT prophylaxis SCDs Problem Qualifiers (1) Vomiting: Qualified Codes: R11.2 - Nausea with vomiting, unspecified Norman Barajas MD Oct 12, 2017 10:17
[2017-10-12] MEDS: THIAMINE HCL 100 MG TAB PO SCH (13:47)
[2017-10-12] MEDS: FOLIC ACID 1 MG TAB PO SCH (13:47)
[2017-10-12 14:19] LABS: BILIRUBIN, URINE NEG (NEG); BLOOD, URINE NEG (NEG); GLUCOSE,URINE 300 mg/dL (NEG); KETONE, URINE NEG (NEG); NITRITE,URINE NEG (NEG); PH, URINE 5.5 (5.0-8.5); URINE COLOR LIGHT-YELLOW (YELLW/STRAW); URINE LEUKOCYTE ESTERASE NEG (NEG)
[2017-10-12] MEDS: PEG (High)/E-LYTE SOLN 4000 ML BTL PO SCH ×2 (17:00→21:15)
[2017-10-13] MEDS: SODIUM CHLOR 0.9% 1000 ML INJ 1,000 ML IV SCH ×2 (01:17→11:17)
[2017-10-13 04:21] VITALS: BP 133/76; PULSE 68; RESP 18; TEMP 97.8; O2SAT 100
[2017-10-13] MEDS: MORPHINE SULFATE 2 MG/ML INJ IV PUSH PRN ×2 (04:34→08:54)
[2017-10-13] MEDS: CIPROFLOXACIN 400 MG PREMIX 200 ML IV SCH ×2 (05:17→18:00)
[2017-10-13] MEDS: metroNIDAZOLE 500 MG INJ 100 ML IV SCH ×2 (06:20→14:00)
[2017-10-13 08:20] VITALS: BP 143/90; PULSE 74; RESP 18; TEMP 98.1; O2SAT 99
[2017-10-13 08:29] LABS: AUTOMATED NEUTROPHIL # 8.5 TH/MM3 (1.8-7.7); BASOPHIL % 0.3 % (0.0-2.0); EOSINOPHIL # 0.1 TH/MM3 (0-0.4); EOSINOPHIL % 0.6 % (0.0-4.0); HEMATOCRIT 45.2 % (39.0-51.0); LYMPHOCYTE # 1.6 TH/MM3 (1.0-4.8); MEAN CORPUSCULAR HEMOGLOBIN 28.2 PG (27.0-34.0); MEAN CORPUSCULAR HGB CONC 33.2 % (32.0-36.0); MEAN PLATELET VOLUME 7.8 FL (7.0-11.0); NEUT % 76.1 % (16.0-70.0); PLATELET COUNT 276 TH/MM3 (150-450); RED BLOOD COUNT 5.31 MIL/MM3 (4.50-5.90); RED CELL DISTRIBUTION WIDTH 13.8 % (11.6-17.2); WHITE BLOOD COUNT 11.1 TH/MM3 (4.0-11.0)
[2017-10-13] MEDS ORDERED: LACTATED RINGER'S 1000 ML IV PRN (08:30)
[2017-10-13] MEDS ORDERED: SODIUM CHLORID 0.9% 500 ML IV PRN (08:30)
[2017-10-13] MEDS ORDERED: METOPROLOL TARTRATE 25 MG TAB PO PRN (08:30)
[2017-10-13] MEDS ORDERED: POVIDONE IODINE 5% (ANTISEPSIS KIT) 4 APPLICATIONS EACH NARE PRN (08:30)
[2017-10-13] MEDS ORDERED: CHLORHEXIDINE GLUCONATE 2 % 1 PACK (2 CLOTHS) TOPICAL PRN (08:30)
[2017-10-13] MEDS: SODIUM CHLORIDE 0.9% FLUSH 10 ML FLUSH IV FLUSH SCH (08:55)
[2017-10-13 08:56] LABS: ALBUMIN 3.1 GM/DL (3.4-5.0); ALKALINE PHOSPHATASE 55 U/L (45-117); ALT (GPT) 19 U/L (12-78); AST (GOT) 14 U/L (15-37); BICARBONATE 26.9 MEQ/L (21.0-32.0); BLOOD UREA NITROGEN 8 MG/DL (7-18); CALCIUM 8.8 MG/DL (8.5-10.1); CHLORIDE 106 MEQ/L (98-107); CREATININE 0.94 MG/DL (0.60-1.30); GLOMERULAR FILTRATION RATE 107 ML/MIN (>89); GLUCOSE,RANDOM 93 MG/DL (74-106); SODIUM (NA) 140 MEQ/L (136-145); TOTAL BILIRUBIN ADULT 0.3 MG/DL (0.2-1.0); TOTAL PROTEIN 6.9 GM/DL (6.4-8.2)
[2017-10-13] MEDS: DOCUSATE SODIUM 50 MG/SENNA 8.6 MG TAB PO SCH (09:00)
[2017-10-13] MEDS ORDERED: LIDOCAINE HCL 1% PF 5 ML SYRINGE OTHER ONE (12:00)
[2017-10-13] MEDS ORDERED: PROPOFOL 200 MG/20 ML AMP IV ONE (12:00)
[2017-10-13] MEDS ORDERED: PROM25TA10 PO (15:54)
[2017-10-13] MEDS ORDERED: NORC5TAB PO (15:54)
[2017-10-13] MEDS: THIAMINE HCL 100 MG TAB PO SCH (16:02)
[2017-10-13] MEDS: MULTIVITAMIN TAB PO SCH (16:02)
[2017-10-13] MEDS: FOLIC ACID 1 MG TAB PO SCH (16:02)
--- NOTE | 2017-10-13 16:03 | HHI.DS ---
Discharge Summary Admission Date Oct 12, 2017 at 05:21 Discharge Date: Oct 13, 2017 Admitting Diagnosis enteritis. Recurrent vomiting (1) Enteritis ICD Code: K52.9 - Noninfective gastroenteritis and colitis, unspecified Diagnosis: Principal Status: Acute (2) Vomiting ICD Code: R11.10 - Vomiting, unspecified Diagnosis: Principal Status: Acute Procedures EGD and colonoscopy Brief History - From Admission Mr. Garcia is a 41 -year-old male. He is admitted secondary to symptoms of hyperemesis. The symptoms have been occurring for the past 3 days along with abdominal pain. He has no recurrent pattern of this. However imaging shows evidence of enteritis suggestive of possible Crohn's disease. EGD and colonoscopy are planned for tomorrow. The patient says that he's feeling slightly better today but does not have full resolution of his symptoms yet. 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 No complaints of fever. CBC/BMP: 10/13/17 0733 10/13/17 0733 Significant Findings Laboratory Tests Test 10/12/17 01:35 10/12/17 13:51 10/12/17 14:35 10/13/17 07:33 Neutrophils (%) (Auto) 79.9 % (16.0-70.0) 76.1 % (16.0-70.0) Monocytes (%) (Auto) 9.0 % (0.0-8.0) 9.0 % (0.0-8.0) Neutrophils # (Auto) 8.2 TH/MM3 (1.8-7.7) 8.5 TH/MM3 (1.8-7.7) Random Glucose 111 MG/DL (74-106) Urine Glucose (UA) 300 mg/dL (NEG) Urine Cocaine Screen POS (NEG) White Blood Count 11.1 TH/MM3 (4.0-11.0) Monocytes # (Auto) 1.0 TH/MM3 (0-0.9) Albumin 3.1 GM/DL (3.4-5.0) Aspartate Amino Transf (AST/SGOT) 14 U/L (15-37) Hospital Course Mr. Garcia is a 41 year old male. He was admitted secondary to hyperemesis. The nausea have been occurring for 3 days prior to admit. Imaging showed evidence of enteritis. EGD and colonoscopy have been performed without findings to suggest chronic inflammatory bowel disease. At this point he is able to tolerate by mouth intake. He is medically stable for discharge to home. I provided him with Phenergan and [place] for pain temporary basis and his condition is expected to fully resolve. Pt Condition on Discharge: Stable Discharge Disposition: Discharge Home Discharge Time: <= 30 minutes Discharge Instructions DIET: Follow Instructions for: As Tolerated, No Restrictions Activities you can perform: Regular-No Restrictions Follow up Referrals: PCP Follow-up - 2 Weeks New Medications: Hydrocodone-Acetaminophen ([place]) 5 Mg-325 Mg Tab 1 TAB PO Q6H PRN for PAIN, #12 TAB 0 Refills Promethazine (Phenergan) 25 Mg Tablet 25 MG PO Q6H PRN for NAUSEA OR VOMITING, #10 TAB 0 Refills Discontinued Medications: Cephalexin (Keflex) 500 Mg Cap 500 MG PO Q12H for Infection for 10 Days, CAP 0 Refills Ibuprofen (Ibuprofen) 800 Mg Tab 800 MG PO Q6HR PRN for PAIN, #40 TAB 0 Refills Sulfamethoxazole-Trimethoprim (Bactrim DS) 800-160 Mg Tab 1 TAB PO BID for Infection, #20 TAB Norman Barajas MD Oct 13, 2017 16:03
[2017-10-13 17:13] VITALS: BP 140/93; PULSE 77; RESP 18; TEMP 98.3; O2SAT 98
== END 2017-10-13 19:55 | disposition home or self-care (01) ==
LOC: NEPE 00:25 → NEDA 05:21 → NEPGCP 06:17
PROVIDERS: ADMIT Internal Medicine; ATTEND Internal Medicine
DX: K52.9 Noninfective gastroenteritis and colitis, unspecified (principal); K22.70 Barrett's esophagus without dysplasia; I25.10 Atherosclerotic heart disease of native coronary artery without angina pectoris; I45.6 Pre-excitation syndrome
CPT/HCPCS: 00813; 43239; 45380; 74177; 80053; 80307; 81001; 83690; 85025; 85610; 85730; 87328; 87329; 87493; 87506; 88305; 88312; 96361; 96365; 96366; 96375; 96376; 99285; G0378; J0744; J1200; J2270; J2405; J2765; J2930; J7030; J7120; Q9967

== ENCOUNTER 2017-11-21 16:15 | Emergency (ER) | payer SELFPAY ==
[~2017-11-21] VITALS: Ht 182.9 cm; Wt 85.0 kg
[~2017-11-21 16:15] MED LIST changes: -BACT800T5 PO; -CEPH-460 PO; -IBUP1TAB7 PO; +NORC5TAB PO; +PROM25TA10 PO
[2017-11-21 16:17] VITALS: BP 163/95; PULSE 109; RESP 14; TEMP 98.2; O2SAT 97
== END 2017-11-21 18:06 | disposition left against medical advice (07) ==
LOC: NED 16:15
DX: R68.89 Other general symptoms and signs (principal)
CPT/HCPCS: 99281

== ENCOUNTER 2017-11-24 17:25 | Emergency (ER) | payer SELFPAY ==
[~2017-11-24] VITALS: Ht 182.9 cm; Wt 84.0 kg
[2017-11-24 17:26] VITALS: BP 145/75; PULSE 69; RESP 16; TEMP 99; O2SAT 98
--- NOTE | 2017-11-24 17:46 | PD ---
HPI Chief Complaint: Lump, Cyst, Hernia Time Seen by Provider: 17:43 Travel History International Travel<30 days: No Contact w/Intl Traveler<30days: No Traveled to known affect area: No History of Present Illness HPI 42-year-old male presents for evaluation of right arm superficial venous. Symptoms started 3 days ago. He reports focal hardness and induration to the right antecubital region of his arm localized to the cephalic vein. He does report that 3 or 4 days ago he felt a stinging sensation in his right arm and he thought that maybe a bug bit him while he was riding his bicycle. He reports occasional pain but none currently. Denies any fevers, chills. He vehemently denies any history of IV drug abuse but he was admitted on October 13 and he had an IV placed in his right a.c. at that time. No other complaints. 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) Diabetes: No Diminished Hearing: No Endocrine: No Gastrointestinal Disorders: No Genitourinary: No Hypertension: No Immune Disorder: No Implanted Vascular Access Dvce: No Musculoskeletal: No Neurologic: Yes (BELLS PALSEY) Psychiatric: No Respiratory: No Radiation Therapy: No Sleep Apnea: No Thyroid Disease: No Tetanus Vaccination: Unknown Past Surgical History Other Surgery: Yes (RT KNEE) Social History Alcohol Use: Yes (daily) Tobacco Use: No Substance Use: No (PT DENIES, HX ) Allergies-Medications (Allergen,Severity, Reaction): Coded Allergies: No Known Allergies (Unverified , 10/12/17) Reported Meds & Prescriptions Reported Meds & Active Scripts Active [place] (Hydrocodone-Acetaminophen) 5 Mg-325 Mg Tab 1 Tab PO Q6H PRN Phenergan (Promethazine HCl) 25 Mg Tablet 25 Mg PO Q6H PRN Review of Systems Except as stated in HPI: all other systems reviewed are Neg Physical Exam Narrative GENERAL: Well-developed well-nourished male in no acute distress SKIN: Warm and dry. HEAD: Atraumatic. Normocephalic. EYES: Pupils equal and round. No scleral icterus. No injection or drainage. ENT: No nasal bleeding or discharge. Mucous membranes pink and moist. NECK: Trachea midline. No JVD. CARDIOVASCULAR: Regular rate and rhythm. No murmur appreciated. RESPIRATORY: No accessory muscle use. Clear to auscultation. Breath sounds equal bilaterally. MUSCULOSKELETAL: No obvious deformities. No edema. There is no tenderness to palpation to the right arm. On examination he does have induration of the right cephalic vein in the antecubital space. There is no erythema or fluctuance. NEUROLOGICAL: Awake and alert. No obvious cranial nerve deficits. Motor grossly within normal limits. Normal speech. Data Data Last Documented VS Vital Signs Date Time Temp Pulse Resp B/P (MAP) Pulse Ox O2 Delivery O2 Flow Rate FiO2 11/24/17 17:26 99.0 69 16 145/75 (98) 98 Room Air Orders Orders Ed Discharge Order (11/24/17 17:52) [facility] Medical Decision Making Medical Screen Exam Complete: Yes Emergency Medical Condition: Yes Medical Record Reviewed: Yes Differential Diagnosis Superficial thrombophlebitis, IV infiltration, cellulitis, abscess Narrative Course Examination is wholly consistent with mild nontender superficial thrombophlebitis of the right cephalic vein in the antecubital region secondary to recent IV insertion. He is stable for discharge. Diagnosis Primary Impression: Superficial thrombophlebitis Additional Instructions: Warm compresses to the affected area several times a day 15 minutes at a time. Take [id number] Motrin as needed. Return for any emergent medical conditions. Med/Other Pt SpecificInfo: No Change to Meds Disposition: 01 DISCHARGE HOME Condition: Stable Dick Miller Nov 24, 2017 17:46
== END 2017-11-24 18:28 | disposition home or self-care (01) ==
LOC: NEPK 17:25
DX: I80.8 Phlebitis and thrombophlebitis of other sites (principal)
CPT/HCPCS: 99282